=== PATIENT | male | born 2005 | race Hispanic/Latino ===

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

== ENCOUNTER 2025-01-28 09:28 | Emergency (ER) | payer OTHER ==
[~2025-01-28] VITALS: Ht 172.7 cm; Wt 77.1 kg
[~2025-01-28 09:28] MED LIST: CEFD300C3 PO; FIORIT PO
[2025-01-28] MEDS: 0.9%NACL 1000ML 1,000 ML IV ONE (10:24)
[2025-01-28] MEDS: ondanSETRON 4MG INJ IVP ONE (10:24)
[2025-01-28 10:50] LABS: RAPID GROUP A STREP negative (NEGATIVE)
[2025-01-28 11:00] LABS: COVID19 (SARS ANTIGEN RAPID) PRESUMPTIVE NEGATIVE (NEGATIVE); INFLUENZA TYPE A Negative For Type A (NEGATIVE); INFLUENZA TYPE B Negative For Type B (NEGATIVE)
[2025-01-28 11:16] LABS: BASOPHILS # (AUTO) 0.02 K/uL (0.00-0.20); BASOPHILS % (AUTO) 0.2 % (0.0-5.0); EOSINOPHILS # (AUTO) 0.08 K/uL (0.00-0.70); EOSINOPHILS % (AUTO) 0.7 % (0.0-8.0); HEMATOCRIT 39.3 % (42-54); IMMATURE GRANULOCYTE ABSOLUTE 0.05 K/uL (0-1); LYMPHOCYTES # (AUTO) 1.6 K/uL (1.0-4.8); LYMPHOCYTES % (AUTO) 13.5 % (21.0-51.0); MEAN CORPUSCULAR HEMOGLOBIN 28.7 pg (27.0-33.0); MEAN CORPUSCULAR HGB CONC 33.3 g/dL (32.0-36.0); MEAN CORPUSCULAR VOLUME 86.2 fL (80-100); MONOCYTES # (AUTO) 1.1 K/uL (0.1-1.0); NEUTROPHILS % (AUTO) 76.2 % (40.0-77.0); PLATELET COUNT (AUTO) 220 K/uL (130-400); RED BLOOD CELL COUNT(AUTO) 4.56 MIL/uL (4.50-6.20); RED CELL DISTRIBUTION WIDTH 12.3 % (11.0-15.5); WHITE BLOOD COUNT (AUTO) 11.8 K/uL (4.8-10.8)
[2025-01-28 11:18] LABS: APPEARANCE,URINE CLEAR (CLEAR); BILIRUBIN,URINE NEGATIVE (NEGATIVE); COLOR,URINE LIGHT-YELLOW (YELLOW); GLUCOSE, URINE (UA) NEGATIVE (NEGATIVE); KETONES,URINE NEGATIVE (NEGATIVE); LEUKOCYTE ESTERASE ,URINE NEGATIVE Leu/uL (NEGATIVE); NITRATE,URINE NEGATIVE (NEGATIVE); OCCULT BLOOD,URINE NEGATIVE (NEGATIVE); PROTEIN,URINE NEGATIVE (NEGATIVE)
[2025-01-28 11:19] LABS: ADD UA MICROSCOPIC YES; MUCUS,URINE RARE LPF (None Seen); RBC,URINE 0-1 /HPF (0-1); WBC,URINE 0-1 /HPF (0-1)
[2025-01-28 11:22] LABS: CREATININE 0.8 mg/dL (0.5-1.3); POTASSIUM 3.5 mmol/L (3.5-5.1)
[2025-01-28 11:26] LABS: ALBUMIN 3.6 g/dL (3.5-5.0); BILIRUBIN,DIRECT 0.2 mg/dL (0.0-0.3); BILIRUBIN,TOTAL 0.5 mg/dL (0.2-1.0); TOTAL PROTEIN, SERUM 8.2 g/dL (6.0-8.3)
--- NOTE | 2025-01-28 12:27 | ERN ---
ED Note History of Present Illness Stated Complaint: COUGH Chief Complaint: Cough Time Seen by MD: 09:55 Dictation: 19-year-old male with a history of tetralogy of Fallot status post repair presents to the ED for evaluation of cough onset 2 weeks ago. Patient reports fever, nausea, vomiting, headaches, body aches and weakness, but denies any other associated symptoms at this time. Patient states he was diagnosed with flu B by PCP two weeks ago, he was prescribed medication, but states he has not experienced any relief. Patient follows up with crew dispatcher and reports taking baby aspirin. Allergies: Coded Allergies: amoxicillin (Unverified Allergy, Unknown, HIVES, 12/21/24) Home Meds Active Scripts Azithromycin (Azithromycin) 250 Mg Tablet, 1 TAB PO AD for 5 Days, #6 TAB 0 Refills 2 the first day followed by 1 for days 2-5 Prov:MICHA ALBA MD 01/28/25 Butalb/Acetaminophen/Caffeine (Fioricet) 50 Mg-325 Mg-40 Mg Tab, 2 TAB PO Q4PRN for Headache, #30 TAB 0 Refills Two tablets by mouth every 4 hours p.r.n. headache. Maximum six tablets in 24 hours. Prov:JC ALVARENGA NP 12/21/24 Cefdinir (Cefdinir) 300 Mg Capsule, 1 CAP PO BID for 10 Days, #20 CAP 0 Refills Prov:JC ALVARENGA NP 12/21/24 Past Medical History Past Medical History: Other Additional Past Medical Hx: HX OF TETRALOGY OF FALLOT Surgical History: Other Surgical History Other: HEART VALVE REPLACEMENT; OPEN HEART X 2 Review of System Dictation Constitutional: Positive for body aches Negative for fever,chills, and weight loss Eyes: Negative for injury, pain,redness, and discharge ENT: Negative for injury,pain or swelling Cardiovascular: Negative for chest pain, palpitations, and edema Respiratory: Positive for cough Negative for shortness of breath, and wheezing, Abdomen/GI: Positive for nausea, vomiting Negative for abdominal pain, diarrhea, and constipation Back: Negative for injury and pain : Negative for injury, bleeding and discharge MS/Extremity: Negative for injury and deformity Skin: Negative for rash, and discoloration Neuro: Positive for headache, weakness negative for weakness, numbness, tingling, and seizure Psych: Negative for suicide ideation, homicidal ideation, and hallucinations Initial Vital Sign VS Vital Signs Date Time Temp Pulse Resp B/P (MAP) Pulse Ox O2 Delivery O2 Flow Rate FiO2 01/28/25 09:29 99.7 95 16 113/69 98 Room Air* 0 21 Physical Exam Dictation General: awake, alert, patient looks uncomfortable Head/Face: Normocephalic, atraumatic Eyes: PERRL, EOMI, vision at baseline ENT: oral cavity clear, TMs clear, no signs of infection Neck: Trachea midline, supple, no nuchal rigidity Cardiovascular: RRR, normal S1/S2, No MRGs, no JVD Respiratory: CTAB, no respiratory distress, No rales or wheezes Abdomen: Soft, non-tender, non-distended, normal bowel sounds, no guarding or rebound. Skin: Warm, dry, normal turgor, no rash MS/Extremity: Pulses equal, no cyanosis, neurovascular intact, FROM Neuro: COAx4, GCS 15, strength 5/5, CN 2-12 intact, normal cerebellar exam, normal gait, Psych: Normal behavior, mood, and affect normal Results (Laboratory/Radiology) Laboratory/Radiology Laboratory Tests Test 01/28/25 09:50 01/28/25 10:25 01/28/25 10:29 Influenza Type A Antigen Negative For Type A Influenza Type B Antigen Negative For Type B SARS-CoV-2 Antigen (Rapid) PRESUMPTIVE NEGATIVE Group A Streptococcus Rapid negative (NEGATIVE) Urine Color LIGHT-YELLOW (YELLOW) Urine Appearance CLEAR (CLEAR) Urine pH 8.0 (5.0-8.0) Urine Specific [place] 1.015 (1.001-1.031) Urine Protein NEGATIVE mg/dL (NEGATIVE) Urine Glucose (UA) NEGATIVE mg/dL (NEGATIVE) Urine Ketones NEGATIVE mg/dL (NEGATIVE) Urine Occult Blood NEGATIVE (NEGATIVE) Urine Nitrate NEGATIVE (NEGATIVE) Urine Bilirubin NEGATIVE mg/dL (NEGATIVE) Urine Urobilinogen 2.0 mg/dL (0.2-1.0) H Urine Leukocyte Esterase NEGATIVE Breanna/uL Urine RBC 0-1 /HPF (0-1) Urine WBC 0-1 /HPF (0-1) Urine Bacteria None /HPF (None Seen) White Blood Count 11.8 K/uL (4.8-10.8) H Red Blood Count 4.56 MIL/uL (4.50-6.20) Hemoglobin 13.1 g/dL (14.0-18.0) L Hematocrit 39.3 % (42-54) L Mean Corpuscular Volume 86.2 fL (80-100) Mean Corpuscular Hemoglobin 28.7 pg (27.0-33.0) Mean Corpuscular Hemoglobin Concent 33.3 g/dL (32.0-36.0) Red Cell Distribution Width 12.3 % (11.0-15.5) Platelet Count 220 K/uL (130-400) Mean Platelet Volume 9.9 fL (7.5-10.5) Immature Granulocyte % (Auto) 0.4 % (0-1) Neutrophils (%) (Auto) 76.2 % (40.0-77.0) Lymphocytes (%) (Auto) 13.5 % (21.0-51.0) L Monocytes (%) (Auto) 9.0 % (3.0-13.0) Eosinophils (%) (Auto) 0.7 % (0.0-8.0) Basophils (%) (Auto) 0.2 % (0.0-5.0) Neutrophils # (Auto) 9.0 K/uL (1.8-7.7) H Lymphocytes # (Auto) 1.6 K/uL (1.0-4.8) Monocytes # (Auto) 1.1 K/uL (0.1-1.0) H Eosinophils # (Auto) 0.08 K/uL (0.00-0.70) Basophils # (Auto) 0.02 K/uL (0.00-0.20) Absolute Immature Granulocyte (auto 0.05 K/uL (0-1) Nucleated Red Blood Cells 0.0 % (0.0-0.19) Sodium Level 139 mmol/L (136-145) Potassium Level 3.5 mmol/L (3.5-5.1) Chloride Level 100 mmol/L (101-111) L Carbon Dioxide Level 30 mmol/L (21-32) Blood Urea Nitrogen 7 mg/dL (7-18) Creatinine 0.8 mg/dL (0.5-1.3) Glomerular Filtration Rate Calc 130 mL/min (>90) Random Glucose 86 mg/dL (70-105) Total Calcium 8.8 mg/dL (8.5-10.1) Total Bilirubin 0.5 mg/dL (0.2-1.0) Direct Bilirubin 0.2 mg/dL (0.0-0.3) Aspartate Amino Transf (AST/SGOT) 21 U/L (10-37) Alanine Aminotransferase (ALT/SGPT) 29 U/L (12-78) Alkaline Phosphatase 101 U/L (50-136) Troponin I High Sensitivity < 4 ng/L (4-75) L B-Type Natriuretic Peptide 138 pg/mL (0-100) H Total Protein 8.2 g/dL (6.0-8.3) Albumin 3.6 g/dL (3.5-5.0) Labs Reviewed?: Yes ED Course ED Course Orders Procedure Category Date Status Time Covid19 (Sars Antigen LAB 01/28/25 Complete Rapid) 09:50 Influenza Type A & B, LAB 01/28/25 Complete Rapid 09:50 Rapid (Group A Strep) LAB 01/28/25 Complete 09:50 Basic Metabolic Panel LAB 01/28/25 Complete 09:58 Cbc With Differential LAB 01/28/25 Complete 09:58 Hepatic Function Panel LAB 01/28/25 Complete 09:58 Chest 1vw RAD 01/28/25 Resulted 09:58 Urinalysis Profile LAB 01/28/25 Complete 09:58 0.9%Nacl 1000ml (Ns PHA 01/28/25 Complete 1000ml) 10:00 Ondansetron 4mg Inj PHA 01/28/25 Complete (Zofran 4mg Inj) 10:00 B-Type Natriuretic LAB 01/28/25 Complete Peptide 10:17 Troponin I High LAB 01/28/25 Complete Sensitivity 10:17 Current Medications Medications (Trade) Dose Ordered Sig/Marky Route PRN Reason Start Time Stop Time Status Last Admin Dose Admin Ondansetron HCl (zoFRAN 4MG INJ) 4 mg ONCE ONCE IVP 01/28/25 10:00 01/28/25 10:02 DC 01/28/25 10:24 Sodium Chloride 1,000 ml @ 0 mls/hr ONCE ONCE IV 01/28/25 10:00 01/28/25 10:02 DC 01/28/25 10:24 Vital Signs Date Time Temp Pulse Resp B/P (MAP) Pulse Ox O2 Delivery O2 Flow Rate FiO2 01/28/25 13:34 99.1 96 18 119/68 98 Room Air* 0 21 01/28/25 12:39 87 16 113/74 98 Room Air* 0 21 01/28/25 11:44 99.1 57 16 129/57 98 Room Air* 0 21 01/28/25 09:29 99.7 95 16 113/69 98 Room Air 0 01/28/25 09:29 99.7 95 16 113/69 98 Room Air* 0 21 Medical Decision Making MDM MDM: Differential diagnosis: Fever, Influenza, dehydration Rationale: Tests considered and ordered secondary to shared decision making include: labs Risk of complication and/or morbidity or mortality of patient management: None Medications-Per medication reconciliation Need for hospitalization: Patient does not meet criteria for hospitalization. Need for emergency major/minor surgery: No There are no social concerns with this patient. I independently interpreted the test that were performed, results were reviewed by me and considered findings on radiology if ordered. Medical management and examination interpretation discussions were had by me with other qualified healthcare professionals as indicated for the patient's care. DX & DISP Disposition: Discharge Departure Impression: Primary Impression: Fever Additional Impression: Acute dehydration Condition: Stable Scripts Azithromycin (Azithromycin) 250 Mg Tablet 1 TAB PO AD for 5 Days, #6 TAB 0 Refills 2 the first day followed by 1 for days 2-5 Prov: MICHA ALBA MD 01/28/25 Referrals: STEPHANY SAVAGE MD (PCP) MICHA ALBA MD January 28, 2025 12:27
[2025-01-28 13:34] VITALS: TEMP 99.2
--- NOTE | 2025-01-28 13:34 | HMCIMG ---
Exam Type: CHEST 1VW Clinical Information: fever Comparison: None Findings: Status post proximal aortic stent placement. There is cardiomegaly and there is status post median sternotomy. The lungs are clear of infiltrates. Impression: Clear lungs.
[2025-01-28] MEDS ORDERED: AZIT250T9 PO (15:08)
[2025-01-28 15:30] VITALS: BP 119/73; PULSE 89; RESP 18; O2SAT 98
== END 2025-01-28 15:35 | disposition home or self-care (01) ==
LOC: EDH 09:28
DX: R50.9 Fever, unspecified (principal); E86.0 Dehydration; Z88.0 Allergy status to penicillin; Z95.2 Presence of prosthetic heart valve; Z20.822 Contact with and (suspected) exposure to COVID-19
CPT/HCPCS: 99285; 96374; 71045; 96361; 87426; 80076; 84484; 80048; 83880; 85025; 87880; 87804 ×2; 81001; 36415; J7030; J2405